=== PATIENT | female | born 1990 | race Caucasian/White ===

== ENCOUNTER 2021-01-23 22:01 | Emergency (ER) | payer OTHER ==
[2021-01-23 23:39] LABS: BILIRUBIN NEGATIVE (NEGATIVE); BLOOD 2+ Ery/uL (NEGATIVE); CLARITY CLEAR (CLEAR); COLOR YELLOW (YELLOW); GLUCOSE (U) NORMAL (NORMAL); LEUKOCYTES 3+ Leu/uL (NEGATIVE); NITRITE NEGATIVE (NEGATIVE); PROTEIN NEGATIVE (NEGATIVE); SPECIFIC GRAVITY <=1.005 (1.001-1.030); UROBILINOGEN 0.2 mg/dL (0.2-1.0)
[2021-01-23 23:55] LABS: URINARY WBC TNTC
[2021-01-23 23:56] LABS: BACTERIA 2+
[2021-01-24 01:02] LABS: BASOPHIL 0.4 % (0-2); EOSINOPHIL 0 % (0-5); HCT 42.6 % (37.0-47.0); HGB 13.9 g/dl (12.5-16.0); LYMPHOCYTE 5.1 % (15-48); MCH 30.7 pg (25.0-31.0); MCHC 32.6 g/dL (32.0-36.0); MPV 10.4 fL (6.0-9.5); NRBC 0; PLT 209 K/uL (150-400); RBC 4.53 M/uL (4.20-5.40); RDW 12.5 % (11.5-14.0); WBC 21.3 K/uL (4.0-10.5)
[2021-01-24 01:04] LABS: NEUTROPHIL 90.1 % (41-80)
[2021-01-24] MEDS ORDERED: BACTRIM DS TAB1 EACH PO ×2 (01:06→01:53)
[2021-01-24 01:23] LABS: BUN/CREAT RATIO (CALC) 10.7 RATIO; CREATININE 0.75 mg/dL (0.51-0.95); POTASSIUM 3.7 mmol/L (3.5-5.1)
== END 2021-01-24 02:25 | disposition home or self-care (01) ==
LOC: FER 22:01
PROVIDERS: Internal Medicine
DX: N39.0 Urinary tract infection, site not specified (principal); R33.9 Retention of urine, unspecified; F17.290 Nicotine dependence, other tobacco product, uncomplicated
CPT/HCPCS: 36415; 80048; 81001; 85025; 87088; 99284; J0696

== ENCOUNTER 2021-07-06 10:28 | Emergency (ER) | payer OTHER ==
[~2021-07-06 10:28] MED LIST: BACTRIM DS TAB1 EACH PO
[2021-07-06 11:51] LABS: BILIRUBIN NEGATIVE (NEGATIVE); BLOOD NEGATIVE Ery/uL (NEGATIVE); CLARITY CLEAR (CLEAR); COLOR YELLOW (YELLOW); GLUCOSE (U) NORMAL (NORMAL); LEUKOCYTES 2+ Leu/uL (NEGATIVE); NITRITE NEGATIVE (NEGATIVE); PROTEIN NEGATIVE (NEGATIVE); SPECIFIC GRAVITY <=1.005 (1.001-1.030); UROBILINOGEN 0.2 mg/dL (0.2-1.0)
[2021-07-06] MEDS ORDERED: KEFLEX250 MG PO (11:55)
[2021-07-06 12:26] LABS: BACTERIA 2+
== END 2021-07-06 12:04 | disposition home or self-care (01) ==
LOC: FER 10:28
PROVIDERS: Emergency Medicine
DX: N39.0 Urinary tract infection, site not specified (principal); R30.0 Dysuria
CPT/HCPCS: 81001; 99283